=== PATIENT | male | born 1955 | race Caucasian/White ===

== ENCOUNTER 2020-11-07 17:50 | Emergency (ER) | payer OTHER, SELFPAY ==
--- NOTE | ~2020-11-07 | XR_ITS ---
EXAMINATION: XR abdomen/kub 1V INDICATION: Bilateral ureteral stones TECHNIQUE: Supine views of the abdomen were obtained on 2 radiographs. COMPARISON: CT from today FINDINGS: There is a 3 mm stone projecting at the expected location of the left ureterovesicular junc tion. A 5 mm stone is seen in the expected location of the distal right ureter. Small bilateral nephr olithiasis described on the comparison CT is not definitely identified. The lung bases are clear. The bowel gas pattern is normal. IMPRESSION: 1. Bilateral pelvic stones projecting in the expected location of the distal ureters. Reviewed, dictated and finalized at location A. IMPRESSION: 1. Bilateral pelvic stones projecting in the expected location of the distal ur eters.
--- NOTE | ~2020-11-07 | CT_ITS ---
EXAMINATION: CT abdomen pelvis wo con DATE: 11/07/2020 19:34 INDICATION: Left flank pain TECHNIQUE: Computed tomography (CT) of the abdomen and pelvis was performed without intravenous contr ast. The dose-length product (DLP) was 208.07 mGy-cm. Automated exposure control and iterative recons truction technique were employed. COMPARISON: None FINDINGS: The lung bases are clear. The heart size is normal. The liver, spleen, pancreas, gallbladde r, and adrenal glands are normal. There is a 4 mm stone at the left ureterovesicular junction which c auses mild left hydroureteronephrosis. There is a 5 mm stone in the distal right ureter with mild hyd ronephrosis. No pathologically enlarged abdominal or pelvic lymph nodes are identified. There is calc ified atherosclerosis of the aorta and many of the other arteries. Colonic diverticulosis is present without evidence of diverticulitis. There is no free intraperitoneal gas or evidence of bowel obstruc tion. There is a large right hydrocele which measures up to 6.7 cm. Severe thoracic and lumbar spondy losis is noted. There is a tiny fat-containing umbilical hernia. IMPRESSION: 1. 4 mm stone at the left ureterovesicular junction causing mild left hydroureteronephrosis. 2. 5 mm stone of the distal right ureter with mild right hydronephrosis. 3. Large right hydrocele. Reviewed, dictated and finalized at location A. IMPRESSION: 1. 4 mm stone at the left ureterovesicular junction causing mild left hydrouret eronephrosis. 2. 5 mm stone of the distal right ureter with mild right hydronephrosis. 3. Large right hydrocele.
[2020-11-07 17:59] VITALS: BP 152/80; PULSE 83; RESP 20; TEMP 36.8; O2SAT 100
[2020-11-07 18:29] LABS: Basophils Absolute Auto 0.1 K/mm3 (0.0-0.1); Basophils Percent Auto 0.7 % (0.2-1.2); Eosinophils Absolute Auto 0.1 K/mm3 (0-0.3); Hematocrit 40.8 % (42.0-52.0); Hemoglobin 13.5 g/dL (14.0-18.0); Immature Granulocyte Absolute 0.03 K/mm3 (0.00-0.031); Immature Granulocyte Percent A 0.4 % (0-0.5); Lymphocytes Absolute Auto 2.15 K/mm3 (0.9-3.2); Lymphocytes Percent Auto 30.2 % (18.3-44.2); Mean Corpuscular HGB Conc 33.1 g/dl (32-36); Mean Corpuscular Hemoglobin 30.3 pg (26-34); Mean Corpuscular Volume 91.7 fl (80-100); Mean Platelet Volume 9.6 fl (7.4-10.4); Monocytes Absolute Auto 0.6 K/mm3 (0.1-0.6); Monocytes Percent Auto 8.7 % (2.6-8.5); Neutrophils Absolute Auto 4.1 K/mm3 (1.3-6.7); Platelet Count Result 297 k/mm3 (150-375); Red Blood Count 4.45 M/mm3 (4.6-6.20); Red Cell Distribution Width 13.2 % (11.5-14.5); White Blood Count 7.1 K/mm3 (4.5-10.0)
[2020-11-07 18:40] LABS: Potassium 5.5 mmol/L (3.4-5.0)
[2020-11-07 18:46] LABS: Anion Gap 9 mmol/L (8-16); Blood Urea Nitrogen 20 mg/dL (9-20); Carbon Dioxide 23 mmol/L (22-30); Chloride 107 mmol/L (98-107); Estimated CRCL calculation 42 ml/min; Estimated Glomerular Filt Rate 51; Glucose 108 mg/dL (65-110); Sodium 139 mmol/L (137-145)
[2020-11-07 19:00] LABS: Add Urine Microscopic? YES; Appearance Urine Clear (Clear); Bilirubin Urine Negative (Negative); Blood Urine 2+ (Negative); Color Urine Yellow (Yellow); Glucose Urine UA Negative (Negative); Ketones Urine Negative (Negative); Leukocyte Esterase Ur Negative LEU/UL (Negative); Mucus Urine Rare /lpf; Nitrate Urine Negative (Negative); Protein Urine Negative (Negative); RBC Urine 21-50 /hpf (0-2); Specific Grav Ur 1.018 (1.001-1.035); Urobilinogen Urine Negative mg/dL (<2.0)
[2020-11-07] MEDS: SODIUM CHLORIDE 0.9% IV 1,000 ML 999 ML IV CONT ×2 (19:55→20:08)
[2020-11-07] MEDS: ONDANSETRON INJ 4 MG/2 ML VIAL IV PUSH (19:55)
[2020-11-07 19:56] VITALS: BP 158/94; PULSE 56; RESP 20; O2SAT 100
[2020-11-07] MEDS: KETOROLAC 30 MG/ML VIAL (*BKC) IV PUSH (19:56)
--- NOTE | 2020-11-07 20:51 | ED.GENADULT ---
HPI - General Adult General Chief complaint: Back Pain/Injury Stated complaint: left flank pain Time Seen by Provider: 11/07/20 19:16 History of Present Illness HPI narrative: Patient is a 64-year-old male who presents ER with flank pain. Has history of kidney stones. Reports yesterday began having some dysuria and then today developed pain in his left flank and groin. He has had some sweats and nausea with this. No fevers or chills or sweats. He is making urine and is having to go frequently due to cramping pain. He has tried [place] with only minimal relief. Related Data Home Medications Medication Instructions Recorded Confirmed cmxgbhj-kaaiznhxspfnu-ucnicsev 250 1 tablet PO Q4-6H PRN 03/11/19 09/30/20 mg-250 mg-65 mg tablet cetirizine 10 mg tablet 10 mg PO DAILY PRN 03/11/19 09/30/20 famotidine 20 mg tablet 20 mg PO DAILY PRN 09/30/19 09/30/20 hydrocodone 10 mg-acetaminophen 1 tablet PO Q8H PRN 03/30/20 09/30/20 325 mg tablet tizanidine 4 mg capsule 4 mg PO TID PRN 03/30/20 09/30/20 Allergies Allergy/AdvReac Type Severity Reaction Status Date / Time No Known Allergies Allergy Verified 05/27/19 11:32 Review of Systems Review of Systems: All systems reviewed & are unremarkable except as noted in HPI and below Constitutional: Constitutional: Denies chills, Denies fever(s) and Denies weakness Gastrointestinal: Gastrointestinal: Reports abdominal pain, Reports nausea and Denies vomiting Genitourinary: Genitourinary: Reports dysuria, Reports urinary frequency and Denies urinary incontinence [facility] Past Medical History Medical History (Updated 11/07/20 @ 21:18 by Km Rothman MD) Acid reflux Hypertension Hypertension Kidney stones Migraine headache Mild acid reflux TIA (transient ischemic attack) Surgical History Surgical History H/O neck surgery 01/2020 Family History Family History Father Family history of cardiovascular disease Father Heart failure Social History Social History Smoking status: Never smoker Tobacco type: cigarettes Alcohol intake: former Substance use: never Gender identity (if verbalized by the patient): Male Exam Narrative: GENERAL: Well-appearing, well-nourished, and in no acute distress. HEAD: Normocephalic, atraumatic. CHEST: Clear to auscultation. No respiratory distress. HEART: Regular rate and rhythm. Normal peripheral pulses. ABDOMEN: Soft, nontender, nondistended. Mild left CVA tenderness EXTREMITIES: Normal range of motion. No edema. SKIN: Warm, dry, no rash. NEURO: Alert and oriented x3. PSYCH: Normal mood and affect. Course Course Emergency Course: Discussed case with urology. Patient is making urine and feels comfortable going home. Discussed return precautions and he verbalized understanding. Vital Signs Vital signs: Vital Signs Temperature 98.3 F 11/07/20 17:59 Pulse Rate 83 11/07/20 17:59 Respiratory Rate 20 11/07/20 17:59 Blood Pressure 152/80 H 11/07/20 17:59 Pulse Oximetry 100 11/07/20 17:59 Temperature 98.3 F 11/07/20 17:59 Pulse Rate 80 11/07/20 21:08 Respiratory Rate 16 11/07/20 21:08 Blood Pressure 132/88 11/07/20 21:08 Pulse Oximetry 97 11/07/20 21:08 Medical Decision Making Vital Signs Vital Signs: Vital Signs Temperature 98.3 F 11/07/20 17:59 Pulse Rate 83 11/07/20 17:59 Respiratory Rate 20 11/07/20 17:59 Blood Pressure 152/80 H 11/07/20 17:59 Pulse Oximetry 100 11/07/20 17:59 Temperature 98.3 F 11/07/20 17:59 Pulse Rate 80 11/07/20 21:08 Respiratory Rate 16 11/07/20 21:08 Blood Pressure 132/88 11/07/20 21:08 Pulse Oximetry 97 11/07/20 21:08 Lab Data Result diagrams: 11/07/20 18:04 11/07/20 18:04 Labs: Lab Results 11/07/20 11/07/20 11/07/20 Issac
[2020-11-07 21:08] VITALS: BP 132/88; PULSE 80; RESP 16; O2SAT 97
[2020-11-07 21:54] VITALS: BP 127/84; PULSE 73; RESP 18; O2SAT 100
== END 2020-11-07 21:56 | disposition home or self-care (01) ==
PROVIDERS: Emergency Provider Emergency Medicine; PCP Internal Medicine
DX: N13.2 Hydronephrosis with renal and ureteral calculous obstruction (principal); K21.9 Gastro-esophageal reflux disease without esophagitis; I10 Essential (primary) hypertension; Z86.73 Personal history of transient ischemic attack (TIA), and cerebral infarction without residual deficits; Z87.442 Personal history of urinary calculi; Z79.82 Long term (current) use of aspirin
CPT/HCPCS: 36415; 74018; 74176; 80048; 81001; 85025; 96361; 96374; 96375; 99284; J1885; J2405; J7030

== ENCOUNTER → 2020-11-11 10:04 | Outpatient (CLI) | payer OTHER, SELFPAY ==
--- NOTE | ~2020-11-11 | XR_ITS ---
EXAMINATION: XR abdomen/kub 1V INDICATION: Calculus of the right ureter TECHNIQUE: Supine views of the abdomen were obtained on 2 radiographs. COMPARISON: 11/07/2020 FINDINGS: The previously described left pelvic stone is no longer identified. There is a 5 mm stone i n the expected location of the distal right ureter which demonstrates slight distal migration, likely now near the ureterovesicular junction. The bowel gas pattern is normal. The lung bases are clear. IMPRESSION: 1. 5 mm stone near the right ureterovesicular junction. 2. Previously described left ureterovesicular junction stone no longer identified. Reviewed, dictated and finalized at location A. IMPRESSION: 1. 5 mm stone near the right ureterovesicular junction. 2. Previously described left ureterovesicular junction stone no longer identifi ed.
== END ==
PROVIDERS: PCP Internal Medicine; Visit Provider Urology
DX: N20.1 Calculus of ureter (principal)
CPT/HCPCS: 74018

== ENCOUNTER 2020-11-13 03:31 | Day surgery (SDC) | payer OTHER, SELFPAY ==
[2020-11-12 15:39] VITALS: BMI 22.7
--- NOTE | ~2020-11-13 | XR_ITS ---
XR retrograde pyelo w/stent RT DATE: 11/13/2020 13:40 INDICATION: 5 mm calculus of distal right ureter, mild right hydronephrosis (11/07/2020 CT abdomen pel vis) TECHNIQUE: 16.1 seconds fluoroscopy time 134.01 radcm2 COMPARISON: None FINDINGS: In the right ureter was catheterized via a ureteroscopic the with passage of a guidewire pl acement of a right internal urinary stent, proximal pigtail overlying the right renal pelvis, distal pigtail overlying the right side of the urinary bladder. IMPRESSION: Right internal urinary stent placement Reviewed, dictated and finalized at Location A. Reviewed, dictated and finalized at location B.
--- NOTE | 2020-11-13 06:07 | ECG_ITS ---
Measurements Intervals [place] Rate: 63 P: 47 MD: 154 QRS: 19 QRSD: 80 T: 51 QT: 403 QTc: 415 Interpretive Statements SINUS RHYTHM EARLY PRECORDIAL R/S TRANSITION BORDERLINE ECG Electronically Signed On 11-13-2020 12:02:11 CDT by Jg Peterson D.O.
--- NOTE | 2020-11-13 10:37 | WPDHPUPDATE1 ---
History and Physical Update Update Date/Time: 11/13/20 10:37 History and Physical has been reviewed, including an updated exam of the patient. There are NO changes in the patient's condition. Risks, benefits, and alternatives have been discussed and questions answered. Patient agrees to proceed with procedure. Proceed with cysto, right retrograde, right ureteroscopy with stone extraction, possible laser and stent placement.
[2020-11-13] MEDS: LACTATED RINGERS 1,000 ML 30 ML IV CONT (11:00)
[2020-11-13 11:52] VITALS: BP 147/75; PULSE 68; RESP 16; TEMP 36.6
--- NOTE | 2020-11-13 12:46 | WPDANESEPPF ---
Anes - Initial Pre Proc Eval Procedure: Operation Date: 11/13/20 12:30 Proposed Procedures p Cystoscopy, Right Ureteroscopy, Right Retrograde Pyelogram, Right Stone Extraction, Possible Right Stent Placement, - Abhilash Corbett MD s Possible Holmium Laser Procedure - Abhilash Corbett MD Date/Time: 11/13/20 12:46 Surgeon: Abhilash Corbett MD Pre Op Diagnosis: Bilat ureteral stones Patient Data Age: 64 Gender: M Height: 1.65 m Weight: 60.9 kg Last Vital Signs Temp 36.6 C 11/13/20 11:52 Pulse 68 11/13/20 11:52 Resp 16 11/13/20 11:52 BP 147/75 H 11/13/20 11:52 Allergies Allergy/AdvReac Type Severity Reaction Status Date / Time No Known Allergies Allergy Verified 11/13/20 11:36 Home Medications Medication Instructions Recorded Confirmed Type euvwgvs-psfzfyqokbvzm-zongppql 250 1 tablet PO Q4-6H PRN 03/11/19 11/12/20 History mg-250 mg-65 mg tablet cetirizine 10 mg tablet 10 mg PO DAILY PRN 03/11/19 11/12/20 History famotidine 20 mg tablet 20 mg PO DAILY PRN 09/30/19 11/12/20 History hydrocodone 10 mg-acetaminophen 1 tablet PO Q8H PRN 03/30/20 11/13/20 History 325 mg tablet tizanidine 4 mg capsule 4 mg PO TID PRN 03/30/20 11/12/20 History simvastatin 10 mg tablet 10 mg PO DAILY #90 tablet 06/02/20 11/12/20 Rx losartan 100 mg tablet 100 mg PO DAILY #90 tablet 10/19/20 11/13/20 Rx ondansetron 4 mg PO Q6H PRN #5 tablet 11/07/20 11/12/20 Rx tamsulosin 0.4 mg PO DAILY #5 cap 11/07/20 11/12/20 Rx Patient hx anesthesia problems: none Family hx anesthesia problems: none PMFSH Past Medical History Medical History Acid reflux Hypertension Hypertension Kidney stones Migraine headache Mild acid reflux TIA (transient ischemic attack) Surgical History Surgical History H/O neck surgery 01/2020 Family History Family History Father Family history of cardiovascular disease Father Heart failure Social History Social History Smoking status: Never smoker Tobacco type: cigarettes Alcohol intake: former Substance use: never Substance use type: does not use Living arrangements: with family Gender identity (if verbalized by the patient): Male Sexual Orientation (if Verbalized by the Patient): Straight or Heterosexual Spiritual care concerns: No Anes - Eval Final PreProcedure Day of Procedure 11/13/20 12:46 Patient weight: normal Heart: regular rate and rhythm Lungs: clear to auscultation Airway: Mallampati scale class II and other (s/p ACDwith radiculopathy and right arm numbness) Neurological: alert and oriented Last oral intake: >/= 8 hours ASA classification: II Emergent: no Anesthetic plan: proceed Anesthesia type and monitoring: general LMA and standard monitoring Informed Consent: The patient's anesthetic plan and its attendant risks and benefits were discussed with the patient/family/POA. Questions were solicited and answers provided to the satisfaction of the patient/family/POA.
[2020-11-13] MEDS: ceFAZolin 2 GM/D5W 50 ML 2 GM/50 ML BAG IVPB (13:15)
[2020-11-13] MEDS: LIDOCAINE HCL 2% GEL UROJET 10 ML PKG MUCOUS MEM (13:28)
--- NOTE | 2020-11-13 13:38 | W.PM.PROC2 ---
Procedure Note - Detailed Date of Procedure 11/13/20 Pre-op Diagnosis Right ureteral calculus distal 5 mm Post-op Diagnosis same Procedure Performed cystoscopy, right retrograde pyelogram, right ureteroscopy with stone extraction, right ureteral stent placement 4.8 [place] contour Surgeon Abhilash Corbett MD Anesthesia general Description of Procedure patient is taken the operative suite correctly identified. Once anesthesia was obtained he was placed in dorsal lithotomy position and prepped and draped usual sterile fashion. Twenty-two [place] scope was inserted in bladder. There are no tumors noted. Right ureteral orifice cannulated with a guidewire. It was dilated using an 8/10 dilator. Rigid ureteral scope was then inserted into the orifice. The stone was localized and grasped. Using an escape basket we retrieved in 1 piece. Reinspection revealed no residual stone. Pyelogram was then performed confirm placement of the stent. 4.8 [place] contour stent was then placed with the proximal end coiled in the renal pelvis and the distal in the bladder. Bladder was drained. 2% viscous lidocaine was inserted urethra patient is taken recovery stable condition. He will follow up in a week's time for stent removal. Drains Yes Packing No Pathology yes Complications No immediate complications Condition stable Disposition PACU
[2020-11-13 13:42] VITALS: BP 110/67; PULSE 62; RESP 12; TEMP 36.1; O2SAT 100
[2020-11-13 13:55] VITALS: BP 125/71; PULSE 64; RESP 18; O2SAT 100
[2020-11-13 14:10] VITALS: BP 121/72; PULSE 63; RESP 14; O2SAT 100
[2020-11-13 14:20] VITALS: BP 135/75; PULSE 64; RESP 16
== END 2020-11-13 15:12 | disposition home or self-care (01) ==
PROVIDERS: PCP Internal Medicine; Visit Provider Urology
PROC: (CPT 52352; principal; 2020-11-13 12:30)
DX: N20.1 Calculus of ureter (principal); I10 Essential (primary) hypertension; K21.9 Gastro-esophageal reflux disease without esophagitis; Z86.73 Personal history of transient ischemic attack (TIA), and cerebral infarction without residual deficits
CPT/HCPCS: 52332; 52352; 74420; 82365; 88300; 93005; A9270; C1769; C2617; J0690; J1100; J2405; J2704; J7120; Q9966

== ENCOUNTER → 2020-11-24 15:28 | Outpatient (CLI) | payer OTHER, SELFPAY ==
--- NOTE | ~2020-11-24 | US_ITS ---
US scrotum doppler DATE: 11/24/2020 15:59 INDICATION: Hydrocele. Right scrotal discomfort for over 30 years, increasing. Enlarging right scrotu m. TECHNIQUE: Real-time and color flow imaging and Doppler analysis of the scrotal contents COMPARISON: 11/07/2020 CT abdomen pelvis FINDINGS: Examination is remarkable for a large loculated right hydrocele. No left hydrocele. The right testicle measures 3.6 x 1.8 x 3.4 cm. The left testicle measures 4.8 x 2.1 x 2.4 cm. There is homogeneous and symmetric echotexture of the testicles. No testicular mass lesion or torsion is evident. Left epididymal head cysts are present, measuring up to approximately 6.8 mm maximal dimension. IMPRESSION: Large loculated right hydrocele No testicular mass lesion or torsion is demonstrated Left epididymal head cysts Reviewed, dictated and finalized at Location A. Reviewed, dictated and finalized at location A.
== END ==
PROVIDERS: PCP Internal Medicine; Visit Provider Urology
DX: N43.3 Hydrocele, unspecified (principal); N50.3 Cyst of epididymis; N50.811 Right testicular pain
CPT/HCPCS: 76870; 93976

== ENCOUNTER → 2021-01-08 15:23 | Outpatient (CLI) | payer OTHER, SELFPAY ==
--- NOTE | ~2021-01-08 | US_ITS ---
EXAMINATION: US retroperitoneal comp DATE: 01/08/2021 15:44 INDICATION: Recent renal stones TECHNIQUE: Multiple grayscale and Doppler ultrasound images of the kidneys were obtained. COMPARISON: None. FINDINGS: The right kidney measures 8.2 x 4.6 x 5.1 cm. The left kidney measures 9.3 x 5.9 x 4.7 cm. The kidneys demonstrate normal parenchymal echogenicity. There is mild right hydronephrosis. The blad sonja is normal. IMPRESSION: 1. Mild right hydronephrosis, otherwise normal kidneys. Reviewed, dictated and finalized at location A.
== END ==
PROVIDERS: PCP Internal Medicine; Visit Provider Urology
DX: N20.1 Calculus of ureter (principal)
CPT/HCPCS: 76770

== ENCOUNTER → 2021-04-12 14:54 | Outpatient (CLI) | payer OTHER, SELFPAY ==
--- NOTE | ~2021-04-12 | US_ITS ---
EXAMINATION: US retroperitoneal comp DATE: 04/12/2021 15:38 INDICATION: Right renal stone TECHNIQUE: Multiple ultrasound grayscale images of the kidneys were obtained. COMPARISON: 01/08/2021 FINDINGS: The right kidney measures 9.0 x 4.4 x 4.1 cm. The left kidney measures 9.6 x 6.3 x 5.2 cm. The kidney s demonstrate normal echogenicity. Persistent mild right hydronephrosis. There is no left-sided hydro nephrosis. No stones identified. The bladder is normal with bilateral ureteral jets visualized with c olor Doppler. IMPRESSION: 1. Persistent mild right hydronephrosis. Reviewed, dictated and finalized at location B. T BASIC EDUCATION INSTRUCTOR
== END ==
PROVIDERS: Visit Provider Urology
DX: N20.1 Calculus of ureter (principal)
CPT/HCPCS: 76770

== ENCOUNTER → 2021-06-07 15:23 | Outpatient (CLI) | payer OTHER, SELFPAY ==
--- NOTE | ~2021-06-07 | CT_ITS ---
EXAMINATION: CT abdomen pelvis wo/w con EXAM DATE: 06/07/2021 15:57 INDICATION: Hydrocele, right. Ureteral stones on prior study. Hypertension. TECHNIQUE: Spiral CT of the abdomen and pelvis was performed without and then with intravenous inject ion of 100 mL Omnipaque 350. Axial, coronal and sagittal images of the abdomen and pelvis were revi ewed. The dose-length product (DLP) for this examination was 940.97 mGy-cm. The exposure was tailor ed according to patient size (auto mA exposure control), and iterative reconstruction (ASIR) was used as additional dose reduction technique. Comparison is made to prior examination from 11/07/2020. FINDINGS: Large right-sided hydrocele, similar appearance on prior CT. The liver, spleen, adrenal gla nds and pancreas are unremarkable. The gallbladder is contracted but otherwise unremarkable. There is no nephrolithiasis or hydronephrosis, resolution of previously seen distal ureteral stones. There are regions of right renal cortical scarring from prior infection or infarctions. Kidneys enhance sym metrically. Prostate is unremarkable. The bladder is unremarkable. There is no retroperitoneal or pelvic lymphadenopathy. There is mild scattered arteriosclerotic disease. Small umbilical fat-conta ining hernia. No inguinal hernias. The appendix is normal. There is mild to moderate sigmoid and descending colonic colonic diverticulos is. There is no adjacent inflammatory change to suggest diverticulitis. The stomach and small bowel are unremarkable. There is expected amount of colonic stool. No free intraperitoneal gas. The he art is normal in size. There are no pericardial or pleural effusions. The lung bases are unremarkab le. There are no osteoblastic or osteolytic lesions identified. There is advanced lower thoracic dis c disease. IMPRESSION: 1. Large right hydrocele unchanged. 2. Regions of right renal cortical scarring. 3. Mild to moderate colonic diverticulosis. 4. No genitourinary calcifications. Reviewed, dictated and finalized at location G. RVISOR LIME
--- NOTE | ~2021-06-07 | XR_ITS ---
XR abdomen/kub 1V DATE: 06/07/2021 15:57 INDICATION: Right hydrocele TECHNIQUE: AP projection, 2 views COMPARISON: 06/07/2021 CT abdomen pelvis 11/11/2020 KUB 11/07/2020 CT abdomen pelvis FINDINGS: Interval resolution of previously reported 5 mm calcified calculus of distal right ureter. HISTORY: Urinary tract calcification is identified. The psoas shadows are intact. No visceromegaly is evident. There is a prominent amount of fecal mater ial in the ascending colon. No bowel obstruction is evident. IMPRESSION: Nonspecific abdomen Reviewed, dictated and finalized at Location A. Reviewed, dictated and finalized at location A. SERVER BI DEVELOPER IMPRESSION: Nonspecific abdomen
[2021-06-07 15:43] LABS: Estimated Glomerular Filt Rate > 60
== END ==
PROVIDERS: PCP Internal Medicine; Visit Provider Urology
DX: N43.3 Hydrocele, unspecified (principal); K57.30 Diverticulosis of large intestine without perforation or abscess without bleeding
CPT/HCPCS: 74018; 74178; Q9967

== ENCOUNTER 2021-11-25 00:59 | Day surgery (SDC) | payer OTHER, SELFPAY ==
[2021-11-16 13:13] VITALS: BMI 22.5
--- NOTE | 2021-11-25 08:19 | WPDHPUPDATE1 ---
History and Physical Update Update Date/Time: 11/25/21 08:19 History and Physical has been reviewed, including an updated exam of the patient. There are NO changes in the patient's condition. Risks, benefits, and alternatives have been discussed and questions answered. Patient agrees to proceed with procedure.
[2021-11-25] MEDS: LACTATED RINGERS 1,000 ML 150 ML IV CONT (08:24)
--- NOTE | 2021-11-25 09:03 | WPDANESEPPF ---
Anes - Initial Pre Proc Eval Procedure: Operation Date: 11/25/21 09:30 Proposed Procedures p Esophagogastroduodenoscopy & Screening Colonoscopy - Josh Dominguez MD Date/Time: 11/25/21 09:03 Surgeon: Josh Dominguez MD Pre Op Diagnosis: nausea, vomiting, neoplasm screening Patient Data Age: 65 Gender: M Height: 1.65 m Weight: 58.7 kg Last Vital Signs O2 Del Method Room Air 11/25/21 08:06 Allergies Allergy/AdvReac Type Severity Reaction Status Date / Time No Known Allergies Allergy Verified 11/25/21 08:05 Home Medications Medication Instructions Recorded Confirmed Type oqftkga-dyiskdlgzdcie-gdqzzkwp 250 1 tablet PO Q4-6H PRN Headache 03/11/19 11/16/21 History mg-250 mg-65 mg tablet (Excedrin Migraine) cetirizine 10 mg tablet (Zyrtec) 10 mg PO DAILY PRN ALLERGIES 03/11/19 11/16/21 History famotidine 20 mg tablet (Pepcid) 20 mg PO DAILY PRN GERD 09/30/19 11/16/21 History tamsulosin 0.4 mg capsule 0.4 mg PO DAILY #5 caps 11/07/20 11/16/21 Rx losartan 100 mg tablet See Rx Instructions .Route 10/12/21 11/16/21 Rx .COMPLEX #90 tabs peg 3350-electrolytes 236 240 ml PO Q10M #4,000 mL 11/01/21 11/16/21 Rx gram-22.74 gram-6.74 gram-5.86 gram solution (Golytely) doxepin 10 mg capsule 10 mg PO QHS PRN insomnia #90 caps 11/04/21 11/16/21 Rx simvastatin 10 mg tablet See Rx Instructions .Route 11/19/21 11/25/21 Rx .COMPLEX #90 tabs Patient hx anesthesia problems: none Family hx anesthesia problems: none Results Review: All pre-operative results and documents have been reviewed as part of the pre-operative evaluation. [facility] Past Medical History Medical History (Updated 10/28/21 @ 10:03 by Andria Brizuela APRN) Acid reflux GERD (gastroesophageal reflux disease) Hypertension Hypertension Kidney stones Migraine headache Mild acid reflux TIA (transient ischemic attack) Surgical History Surgical History H/O neck surgery 01/2020 Family History Family History Father Family history of cardiovascular disease Father Heart failure Social History Social History (Updated 10/28/21 @ 09:15 by Gill Orellana MA) Smoking packs per day: 1.5 Smoking cigarettes per day: 30.0 Years smoked: 30 Smoking pack-years: 45.00 Smoking status: Former smoker Tobacco type: cigarettes Alcohol intake: never Substance use: never Substance use type: does not use Living arrangements: with family Gender identity (if verbalized by the patient): Male Sexual Orientation (if Verbalized by the Patient): Straight or Heterosexual Spiritual care concerns: No Anes - Eval Final PreProcedure Day of Procedure 11/25/21 09:03 Patient weight: normal Heart: regular rate and rhythm Lungs: clear to auscultation Airway: Mallampati scale class II Neurological: alert and oriented Last oral intake: >/= 8 hours ASA classification: II Emergent: no Anesthetic plan: proceed Anesthesia type and monitoring: general GIVS and standard monitoring Results Review: All pre-operative results and documents have been reviewed as part of the pre-operative evaluation. Informed Consent: The patient's anesthetic plan and its attendant risks and benefits were discussed with the patient/family/POA. Questions were solicited and answers provided to the satisfaction of the patient/family/POA.
--- NOTE | 2021-11-25 09:41 | SUR.OPER ---
EGD START 914, END 924 COLONOSCOPY START 930, END 939
[2021-11-25 09:45] VITALS: BP 94/69; PULSE 84; RESP 21; TEMP 28.8; O2SAT 100
[2021-11-25 09:55] VITALS: BP 97/66; PULSE 72; RESP 13; O2SAT 100
[2021-11-25 10:05] VITALS: BP 113/67; PULSE 72; RESP 18; O2SAT 100
== END 2021-11-25 10:19 | disposition home or self-care (01) ==
PROVIDERS: PCP Internal Medicine; Visit Provider Internal Medicine Gastroenterology
PROC: 0DJ08ZZ Inspection of Upper Intestinal Tract, Via Natural or Artificial Opening Endoscopic (ICD-10-PCS; CPT 43235; principal; 2021-11-25 09:30)
DX: Z12.11 Encounter for screening for malignant neoplasm of colon (principal); K22.70 Barrett's esophagus without dysplasia; K64.8 Other hemorrhoids; K57.30 Diverticulosis of large intestine without perforation or abscess without bleeding; R11.10 Vomiting, unspecified; K31.5 Obstruction of duodenum; R11.2 Nausea with vomiting, unspecified; Z79.82 Long term (current) use of aspirin; K21.9 Gastro-esophageal reflux disease without esophagitis; Z86.73 Personal history of transient ischemic attack (TIA), and cerebral infarction without residual deficits; I10 Essential (primary) hypertension; Z87.891 Personal history of nicotine dependence
CPT/HCPCS: 45378; 43239; 43245; 88305; C1726; J2704; J7120

== ENCOUNTER → 2022-05-30 15:29 | Outpatient (CLI) | payer OTHER, SELFPAY ==
--- NOTE | ~2022-05-30 | MR_ITS ---
EXAMINATION: MR cervical spine wo con DATE: 05/30/2022 16:15 INDICATION: Cervical spinal fusion. Neck pain. TECHNIQUE: Magnetic resonance imaging (MRI) of the cervical spine was performed without intravenous c ontrast. COMPARISON: Cervical spine MRI 05/02/2019 FINDINGS: There is 7 degrees dextrocurvature of cervical spine. There is 2 mm anterolisthesis of C3 o n C4 and 2 mm retrolisthesis of C5 on C6 and C6 on C7. There is 2 mm anterolisthesis of C7 on T1. Elder tebral body heights are normal. There are changes of anterior fusion procedure from C3 to C5 with int erbody devices and anterior plate and screws. There is severely decreased disc height at C5-C6 and C6 -C7 with endplate remodeling. The following disc levels are specifically discussed: C2-C3: There is a central extrusion. There is mild left uncovertebral joint osteoarthritis. There is mild right and severe left facet joint osteoarthritis. There is mild left neural foraminal stenosis. There is no central canal stenosis. C3-C4: There is mild left uncovertebral joint hypertrophy. There is ankylosis of the facet joints wit h mild hypertrophy. There is mild left neural foraminal stenosis. There is no central canal stenosis. C4-C5: There is mild right and moderate left uncovertebral joint hypertrophy. There is moderate left facet joint osteoarthritis. There is ankylosis of right facet joint without hypertrophy. There is mil d left neural foraminal stenosis. There is mild central canal stenosis. C5-C6: The disc is bulging. There is severe bilateral uncovertebral joint osteoarthritis. There is se remedios right and moderate left facet joint osteoarthritis. There is moderate bilateral neural foraminal stenosis. There is mild central canal stenosis with ventral indentation of the spinal cord. C6-C7: The disc is bulging. There is severe bilateral uncovertebral joint osteoarthritis. There is se remedios bilateral facet joint osteoarthritis. There is moderate bilateral neural foraminal stenosis. The re is mild central canal stenosis. C7-T1: The disc does not extend beyond the endplate margin. There is no uncovertebral joint osteoarth ritis. There is severe bilateral facet joint osteoarthritis. There is mild bilateral neural foraminal stenosis. There is no central canal stenosis. IMPRESSION: 1. Severe cervical spondylosis. 2. Anterior fusion procedure from C3 to C5. Reviewed, dictated and finalized at location A. IC RELATIONS
== END ==
PROVIDERS: PCP Internal Medicine; Visit Provider Neurological Surgery
DX: M47.892 Other spondylosis, cervical region (principal); Z98.1 Arthrodesis status
CPT/HCPCS: 72141

== ENCOUNTER 2023-05-31 16:28 | Observation (INO) | payer OTHER, SELFPAY ==
--- NOTE | ~2023-05-31 | XR_ITS ---
EXAMINATION: XR sm bowel follow through WS DATE: 06/01/2023 11:59 INDICATION: Small bowel obstruction TECHNIQUE: Hematology Specialist radiograph the abdomen was obtained. Water-soluble oral contrast was administered, a nd sequential radiographs of the abdomen were obtained until oral contrast was noted to be in the pro ximal colon. COMPARISON: CT dated 05/31/2023 FINDINGS: There are no dilated loops of gas-filled bowel in the machine cementer and folder radiograph. Nasogastric tube with distal tip at the gastric antrum and proximal side port in the body of the stomach. Transit time from the stomach to proximal colon was approximately 45 minutes. There is normal caliber and mucosal fold pattern throughout the small bowel. Small sliding-type hiatal hernia with small sasha unt of contrast into the distal esophagus on the 45 minute image consistent with likely reflux. IMPRESSION: 1. Small sliding-type hiatal hernia with reflux of a small amount of contrast into the distal esophag us alongside the appropriately positioned nasogastric tube. 2. Otherwise normal small bowel follow-through with no obstruction. Reviewed, dictated and finalized at location A. T PROTECTION ASSOCIATE IMPRESSION: 1. Small sliding-type hiatal hernia with reflux of a small amount of contrast i nto the distal esophagus alongside the appropriately positioned nasogastric tub e. 2. Otherwise normal small bowel follow-through with no obstruction.
--- NOTE | ~2023-05-31 | XR_ITS ---
EXAMINATION: XR abdomen gastric tube insert DATE: 05/31/2023 21:02 INDICATION: Nasogastric tube placement. TECHNIQUE: An upright view of the abdomen was obtained on 2 radiographs. COMPARISON: CT abdomen and pelvis 05/31/2023 FINDINGS: The lower abdomen is excluded. The nasogastric tube tip is in the stomach. IMPRESSION: 1. Nasogastric tube tip in the stomach. Reviewed, dictated and finalized at location E. FORMER
--- NOTE | ~2023-05-31 | CT_ITS ---
EXAMINATION: CT abdomen pelvis wo con DATE: 05/31/2023 17:52 INDICATION: Bilateral flank pain. Kidney stones. TECHNIQUE: Computed tomography (CT) of the abdomen and pelvis was performed without intravenous contr ast. Automated exposure control and iterative reconstruction technique were employed. The dose-length product was 261.33 mGy-cm. COMPARISON: CT abdomen and pelvis 06/07/2021 FINDINGS: The visualized portions of the lung bases demonstrate minimal atelectasis. No pleural effus ion. The heart size is normal. No pericardial effusion. There are calcifications of right coronary ar aakash. The liver, gallbladder, spleen, pancreas, and adrenal glands are normal. There is cortical thin bear of right kidney. There are peripelvic cysts in left kidney measuring up to 2.2 cm . There is no urolithiasis. The prostate is mildly enlarged. There is diverticulosis of the colon without evidence of diverticulitis. There is desiccated stool in the terminal ileum, which is normal in caliber. There are multiple dilated loops of small bowel proximal to this area. The stomach is distended. There are no pathologically enlarged lymph nodes. There is no free intraperitoneal fluid. There is a chronic l arge right hydrocele. There is severe thoracic and lumbar spondylosis. IMPRESSION: 1. Stool impaction in the terminal ileum. 2. Chronic large right hydrocele. Reviewed, dictated and finalized at location E. ING BALL ASSEMBLER
[2023-05-31 16:31] VITALS: BP 142/88; PULSE 115; RESP 20; TEMP 36.1; O2SAT 100
--- NOTE | 2023-05-31 16:44 | ED.MALEGU ---
HPI - Male Genitourinary General Chief complaint: Urogenital-Male Stated complaint: R FLANK PAIN, HX KIDNEY STONES Time Seen by Provider: 05/31/23 16:44 Source: patient and family Mode of arrival: ambulatory History of Present Illness HPI Narrative: 67 years old white male came to the ED with bilateral flank pain mainly on the right side of started last night associated with nausea for the last 2 days, patient reported increased frequency of urination lately. He denies any fever or chills. History of kidney stone. Related Data Allergies Allergy/AdvReac Type Severity Reaction Status Date / Time No Known Allergies Allergy Verified 05/31/23 16:44 Review of Systems Review of Systems: All systems reviewed & are unremarkable except as noted in HPI and below PMFSH Past Medical History Medical History Acid reflux Acute hyperkalemia Elevated glucose level Encounter for screening for other disorder GERD (gastroesophageal reflux disease) Hypertension Hypertension Impacted cerumen of left ear Insomnia Kidney stones Leg cramping Migraine headache Mild acid reflux Nausea and vomiting Screening for colon cancer Screening for prostate cancer TIA (transient ischemic attack) Vitamin D deficiency Surgical History Surgical History H/O neck surgery 01/2020 Family History Family History Father Family history of cardiovascular disease Father Heart failure Social History Social History Smoking packs per day: 1.5 Smoking cigarettes per day: 30.0 Years smoked: 30 Smoking pack-years: 45.00 Smoking status: Former smoker Tobacco type: cigarettes Alcohol intake: never Substance use: never Substance use type: does not use Do You Feel Safe in your Home?: Yes Lack of Transportation: No Lack of Food: Never True Current Housing: I Have Housing Concerned About Future Housing: No Difficulty Paying Gas/Electric Bills: No Difficulty Paying for Meds: No Currently Unemployed: No Education: High School Diploma/GED Difficulty w/ Childcare or Family Care: No Living arrangements: with family Gender identity (if verbalized by the patient): Male Sexual Orientation (if Verbalized by the Patient): Straight or Heterosexual Spiritual care concerns: No Exam Narrative: General appearance: Well-developed, well-nourished Skin: Normal color Head: Normocephalic, nontraumatic Eyes: Clear conjunctiva ENT: Oropharynx normal, ears normal, nose normal Neck: Supple, nontender Chest and respiratory: Airway patent, no respiratory distress, no accessory muscle use Heart: Regular rate/rhythm Abdomen: Soft, nontender, no organomegaly, quiet bowel sounds Vascular: Normal peripheral pulses, normal capillary refill. Musculoskeletal: Normal range of motion, nontender back Neurologic: Alert and oriented ?3, GOLF CART ATTENDANT is normal as tested, no gross motor deficit Course Consultations Consultation #1: Dr. Heard Admit to hospitalist Date: 05/31/23 Time: 19:06 Consultation #2: Dr. Mclaughlin No surgical consult required at this time. If the patient have any intra-abdominal tumor would be okay to be consulted. Date: 05/31/23 Time: 19:10 Vital Signs Vital signs: Vital Signs Temperature 36.1 C L 05/31/23 16:31 Pulse Rate 115 H 05/31/23 16:31 Respiratory Rate 20 05/31/23 16:31 Blood Pressure 142/88 H 05/31/23 16:31 Pulse Oximetry 100 05/31/23 16:31 Oxygen Delivery Room Air 05/31/23 16:31 Temperature 37.2 C
[2023-05-31 16:48] LABS: Appearance Urine Clear (Clear); Bilirubin Urine Negative (Negative); Blood Urine Negative (Negative); Color Urine Yellow (Yellow); Glucose Urine UA Negative (Negative); Ketones Urine 1+ mg/dL (Negative); Leukocyte Esterase Ur Negative LEU/UL (Negative); Nitrate Urine Negative (Negative); Protein Urine Negative (Negative); Specific Grav Ur 1.027 (1.001-1.035); Urobilinogen Urine 0.2 mg/dL (<2.0)
[2023-05-31 16:52] LABS: Add Urine Microscopic? NO
[2023-05-31 17:10] VITALS: BP 101/64; PULSE 64; RESP 16; O2SAT 100
[2023-05-31] MEDS: SODIUM CHLORIDE 0.9% IV 1,000 ML 999 ML IV CONT (17:19)
[2023-05-31 17:21] LABS: Basophils Percent Auto 0.4 % (0.2-1.2); Eosinophils Absolute Auto 0.1 K/mm3 (0-0.3); Eosinophils Percent Auto 1.1 % (0-4.4); Hematocrit 42.5 % (42.0-52.0); Hemoglobin 14.5 g/dL (14.0-18.0); Immature Granulocyte Absolute 0.04 K/mm3 (0.00-0.031); Immature Granulocyte Percent A 0.4 % (0-0.5); Lymphocytes Absolute Auto 1.63 K/mm3 (0.9-3.2); Lymphocytes Percent Auto 15.7 % (18.3-44.2); Mean Corpuscular HGB Conc 34.1 g/dl (32-36); Mean Corpuscular Hemoglobin 30.5 pg (26-34); Mean Corpuscular Volume 89.5 fl (80-100); Mean Platelet Volume 9.5 fl (7.4-10.4); Monocytes Absolute Auto 0.8 K/mm3 (0.1-0.6); Monocytes Percent Auto 7.3 % (2.6-8.5); Neutrophils Absolute Auto 7.8 K/mm3 (1.3-6.7); Neutrophils Percent Auto 75.1 % (45.5-73.1); Platelet Count Result 300 k/mm3 (150-375); Red Blood Count 4.75 M/mm3 (4.6-6.20); Red Cell Distribution Width 13.2 % (11.5-14.5); White Blood Count 10.4 K/mm3 (4.5-10.0)
[2023-05-31 17:28] LABS: Alanine Aminotransferase 24 U/L (6-50); Albumin Level 4.6 g/dL (3.5-5.1); Alkaline Phosphatase 107 U/L (38-126); Anion Gap 10 mmol/L (8-16); Aspartate Amino Transferase 37 U/L (17-59); Bilirubin,Total 0.7 mg/dL (0.2-1.3); Blood Urea Nitrogen 21 mg/dL (9-20); Calcium 10.3 mg/dL (8.4-10.2); Carbon Dioxide 23 mmol/L (22-30); Chloride 103 mmol/L (98-107); Estimated CRCL calculation 60 ml/min; Estimated Glomerular Filt Rate > 60; Glucose 105 mg/dL (65-110); Potassium 4.5 mmol/L (3.4-5.0); Sodium 136 mmol/L (137-145)
[2023-05-31] MEDS: HYDROmorphone HCL INJ (*CRX) 1 MG/ML SYR 0.5 MG IV PUSH (18:42)
[2023-05-31] MEDS: TAMSULOSIN HCL 0.4 MG CAPSULE PO (18:42)
[2023-05-31] MEDS: ONDANSETRON INJ 4 MG/2 ML VIAL IV PUSH (18:42)
[2023-05-31] MEDS: SODIUM CHLORIDE 0.9% IV 1,000 ML 150 ML IV CONT (20:44)
--- NOTE | 2023-05-31 20:44 | PM.IMHP ---
H&P: HPI History of Present Illness Date/Time: 05/31/23 20:44 Chief Complaint: back pain Narrative: This is a 67-year-old male with past medical history significant for hypertension, spinal stenosis, chronic back pain. Patient presents to the emergency room after having sudden onset of back pain, abdominal pain, constipation, nausea. Patient had been in his usual state of health up until this point denied any hematemesis, coffee-ground emesis, hematochezia, melena, no weight loss. preliminary workup was significant for CT of abdomen and pelvis shows fecal impaction at the level of the ileum. Patient had NG placed in emergency room and is been admitted for further evaluation management and treatment. EXAMINATION: CT abdomen pelvis wo con DATE: 05/31/2023 17:52 INDICATION: Bilateral flank pain. Kidney stones. TECHNIQUE: Computed tomography (CT) of the abdomen and pelvis was performed without intravenous contrast. Automated exposure control and iterative reconstruction technique were employed. The dose-length product was 261.33 mGy-cm. COMPARISON: CT abdomen and pelvis 06/07/2021 FINDINGS: The visualized portions of the lung bases demonstrate minimal atelectasis. No pleural effusion. The heart size is normal. No pericardial effusion. There are calcifications of right coronary artery. The liver, gallbladder, spleen, pancreas, and adrenal glands are normal. There is cortical thinning of right kidney. There are peripelvic cysts in left kidney measuring up to 2.2 cm . There is no urolithiasis. The prostate is mildly enlarged. There is diverticulosis of the colon without evidence of diverticulitis. There is desiccated stool in the terminal ileum, which is normal in caliber. There are multiple dilated loops of small bowel proximal to this area. The stomach is distended. There are no pathologically enlarged lymph nodes. There is no free intraperitoneal fluid. There is a chronic large right hydrocele. There is severe thoracic and lumbar spondylosis. IMPRESSION: 1. Stool impaction in the terminal ileum. 2. Chronic large right hydrocele. Review of Systems Review of Systems: Back pain, abdominal pain, nausea, constipation Constitutional: Constitutional: Denies chills, Denies fever(s), Denies night sweats and Reports poor appetite Eyes: Eyes: Denies change in vision ENT: Denies dysphagia and Denies odynophagia Cardiovascular: Cardiovascular: Denies chest pain Respiratory: Respiratory: Denies cough and Denies dyspnea Gastrointestinal: Gastrointestinal: Reports abdominal pain, Denies melena, Reports bloating, Denies hematochezia, Denies coffee ground emesis, Reports constipation, Denies diarrhea, Denies loose stools, Reports nausea and Denies vomiting Genitourinary: Genitourinary: Denies dysuria Musculoskeletal: Musculoskeletal: Reports back pain Integumentary/Breasts: Skin/Breast: Denies rash Neurologic: Denies focal weakness and Denies Sensory deficit (Neuro) Psychiatric: Psychiatric: Reports no additional psychiatric complaints and Reports as per HPI Endocrine: Endocrine: Denies cold intolerance, Denies flushing, Denies heat intolerance, Denies polyphagia, Denies polydipsia and Denies palpitations Hematologic/Lymphatic: Hematologic/Lymphatic: Reports no additional hematologic/lymphatic complaints and Reports as per HPI Allergic/Immunologic: Allergic/Immunologic: Reports no additional allergic/immunologic complaints and Reports as per HPI PMFSH Past Medical History Medical History Acid reflux Acute hyperkalemia Elevated glucose level Encounter for screening for other disorder GERD (gastroesophageal reflux disease) Hypertension Hypertension Impacted cerumen of left ear Insomnia Kidney stones Leg cramping Migraine headache Mild acid reflux Nausea and vomiting Screening for colon cancer Screening for prostate cancer TIA (transient ischemic attack) Vitamin D
[2023-05-31 20:45] VITALS: PULSE 85; RESP 15; TEMP 36.6; O2SAT 100
[2023-05-31 21:17] VITALS: BP 141/87; PULSE 89; RESP 15; O2SAT 98
[2023-05-31 21:30] VITALS: BP 143/88; PULSE 74; RESP 18; TEMP 37.2; O2SAT 100
[2023-05-31] MEDS: ASPIRIN 81 MG CHEWABLE TABLET 324 MG PO (22:22)
--- NOTE | 2023-05-31 22:25 | PC.NURSE ---
This patient, Jacob Linda, was admitted to [facility] Surg Room 304-02. Patient/family oriented to hospital policies and general routines including ID bracelet, bed and alarms, visiting hours, pain management, procedures, bathroom and other care routines, personal items, smoking policy, room service/diet, and visiting hours. Information on how to activate the Rapid Response Team has been discussed. Patient/Family are encouraged to report perceived risks to care and to ask questions if they do not understand what they are told or what they should do.
[2023-06-01] MEDS: SODIUM CHLORIDE 0.9% IV 1,000 ML 150 ML IV CONT ×3 (03:44→17:21)
[2023-06-01 06:14] VITALS: BP 131/79; PULSE 84; RESP 20; TEMP 36.7; O2SAT 98
--- NOTE | 2023-06-01 06:26 | WPDGICN ---
Assessment and Plan Assessment and plan (1) Back pain: Code(s): M54.9 - Dorsalgia, unspecified Status: Acute Assessment and Plan: he presented to the emergency room with back pain which was similar to his previous pain with kidney stones. He had some radiation to the right groin. (2) Fecal impaction: Code(s): K56.41 - Fecal impaction Status: Acute Assessment and Plan: CT scan of the abdomen shows: FINDINGS: The visualized portions of the lung bases demonstrate minimal atelectasis. No pleural effusion. The heart size is normal. No pericardial effusion. There are calcifications of right coronary artery. The liver, gallbladder, spleen, pancreas, and adrenal glands are normal. There is cortical thinning of right kidney. There are peripelvic cysts in left kidney measuring up to 2.2 cm . There is no urolithiasis. The prostate is mildly enlarged. There is diverticulosis of the colon without evidence of diverticulitis. There is desiccated stool in the terminal ileum, which is normal in caliber. There are multiple dilated loops of small bowel proximal to this area. The stomach is distended. There are no pathologically enlarged lymph nodes. There is no free intraperitoneal fluid. There is a chronic large right hydrocele. There is severe thoracic and lumbar spondylosis. (3) Kidney stones: Code(s): N20.0 - Calculus of kidney Status: Acute Assessment and Plan: no acute stone as the patient had suspected (4) Small bowel obstruction: Code(s): K56.609 - Unspecified intestinal obstruction, unspecified as to partial versus complete obstruction Status: Acute Assessment and Plan: NG tube was placed. There was about 700 mm obtained immediately. Nothing has come out during the night. On examination the patient is abdomen is soft and nontender. He has very good bowel cells. I will give him a laxative per NG tube and hopefully remove that this morning. Although he has what appears on CT scan to be obstruction the terminal ileum, surgery was not called. The emergency room physician told me that surgery always asks to get GI on board 1st. GI Consult Note Consult date/time: 06/01/23 06:26 HPI: Jacob Linda is a 67 year old male who yesterday had sudden onset of back pain and some radiating into the lower abdomen. He had some nausea but no vomiting. He has not had a fever. He has had kidney stones in the past and this is felt the same to him. A CT scan in the emergency room however showed what appears to be stool or other material in the terminal ileum. Was described as desiccated stool the patient denies having constipation he does not usually take anything for his bowel movements. He has had no weight loss. His appetite has been good and he really has not had abdominal pain. He felt uncomfortable and full and that subsided after NG tube was placed and about 700 mL of fluid was obtained. during the night only a scant bit of material is showing up in the NG tube canister. Review of Systems Review of Systems: All systems reviewed & are unremarkable except as noted in HPI and below PMFSH Past Medical History Medical History Acid reflux Acute hyperkalemia Elevated glucose level Encounter for screening for other disorder GERD (gastroesophageal reflux disease) Hypertension Hypertension Impacted cerumen of left ear Insomnia Kidney stones Leg cramping Migraine headache Mild acid reflux Nausea and vomiting Screening for colon cancer Screening for prostate cancer TIA (transient ischemic attack) Vitamin D deficiency Surgical History Surgical History H/O neck surgery 01/2020 Family History Family History Father Family history of cardiovascular disease Father Heart failure Social History Socia
[2023-06-01] MEDS: MAGNESIUM CITRATE 300 ML BTL 150 ML PO (06:33)
--- NOTE | 2023-06-01 06:33 | PC.NURSE ---
Md Heard ordered to clamp NG and given magnesium citrate PO
--- NOTE | 2023-06-01 06:36 | PC.NURSE ---
MD Heard informed Ed reported 700 ml out, minimal output on floor 50 ml
--- NOTE | 2023-06-01 07:41 | PM.IMPN ---
Progress Note: A&P Assessment and Plan (1) Small bowel obstruction: Code(s): K56.609 - Unspecified intestinal obstruction, unspecified as to partial versus complete obstruction Status: Acute (2) Fecal impaction: Code(s): K56.41 - Fecal impaction Status: Acute (3) Back pain: Code(s): M54.9 - Dorsalgia, unspecified Status: Acute (4) Abdominal pain: Code(s): R10.9 - Unspecified abdominal pain Status: Acute (5) Acute constipation: Code(s): K59.00 - Constipation, unspecified Status: Acute (6) Spinal stenosis: Qualifiers: Spinal region: cervical Qualified Code(s): M48.02 - Spinal stenosis, cervical region Code(s): M48.00 - Spinal stenosis, site unspecified Status: Acute (7) GERD (gastroesophageal reflux disease): Code(s): K21.9 - Gastro-esophageal reflux disease without esophagitis Status: Acute (8) Hypertension: Qualifiers: Hypertension type: essential hypertension Qualified Code(s): I10 - Essential (primary) hypertension Code(s): I10 - Essential (primary) hypertension Status: Chronic Plan ABD Pain/bowel obstruction/Fecal impaction CT shows fecal impaction of the Terminal ileum GI and Surgery consulted recommendations appreciated NG tube to intermittent suction Clamp tube administer laxative per GI (Mag Citrate) NO BM noted overnight NPO PPI IV Fluids Monitor and replenish electrolytes especially mag and K+ antiemetics pain control HTN Will resume Losartan once tolerating oral intake PRN Hydralazine if needed IV Systolic >160 BP per unit protocol HLD Will resume Statin when tolerating oral intake Code status: Full code per patient DVT prophylaxis: SCD's Stress ulcer prophylaxis: Protonix 40 daily PT/OT notes: ambulatory Disposition: Patient continues admission to the medical unit for further treatment of bowel obstruction GI and surgery to follow, attempt laxative and removal of NG tube. Patient will dischage to home when tolerating oral intake, BM and improvement to ABD pain. Time Spent With Patient Time with patient: 25 - 35 minutes Subjective Date/time seen: 06/01/23 07:41 Interval history: H&P (Medical Record) This is a 67-year-old male with past medical history significant for hypertension, spinal stenosis, chronic back pain.? Patient presents to the emergency room after having sudden onset of back pain, abdominal pain, constipation, nausea.? Patient had been in his usual state of health up until this point denied any hematemesis, coffee-ground emesis, hematochezia, melena, no weight loss. preliminary workup was significant for CT of abdomen and pelvis shows fecal impaction at the level of the ileum.? Patient had NG placed in emergency room and is been admitted for further evaluation management and treatment. 06/01: Patient reports some relief to ABD pain, scant amount of of NG tube at time of assessment currently clamped now and getting a laxative. Patient denies BM but did report some gas. ABD is still moderatly distended but soft no tenderness with palpation. GI following, Surgery consulted for further evaluation and recommendations. Will likely be able to pull NG tube if no N/V and BM will wait for surgery recommendations. Patient does have complaints of neck and back pain which is chronic but worst today pain medication ordered. Labs unremarkable and vitals stable. Review of Systems Review of Systems: All systems reviewed & are unremarkable except as noted in HPI and below Exam Narrative: Physical Exam: GENERAL: Alert and oriented x 3. No acute distress. Well-nourished. EYES: EOMI. No scleral icterus. PERRLA. HEENT: Moist mucous membranes. No cervical lymphadenopathy. LUNGS: Clear to auscultation bilaterally. No accessory muscle use. CARDIOVASCULAR: Regular rate and rhythm. No murmur. No JVD. S1-S2 ABDOMEN:
[2023-06-01 08:12] LABS: Hematocrit 37.8 % (42.0-52.0); Hemoglobin 12.5 g/dL (14.0-18.0); Mean Corpuscular HGB Conc 33.1 g/dl (32-36); Mean Corpuscular Hemoglobin 30.6 pg (26-34); Mean Corpuscular Volume 92.6 fl (80-100); Mean Platelet Volume 9.7 fl (7.4-10.4); Platelet Count Result 265 k/mm3 (150-375); Red Blood Count 4.08 M/mm3 (4.6-6.20); Red Cell Distribution Width 13.5 % (11.5-14.5); White Blood Count 6.9 K/mm3 (4.5-10.0)
[2023-06-01 08:18] LABS: Alanine Aminotransferase 18 U/L (6-50); Albumin Level 3.5 g/dL (3.5-5.1); Alkaline Phosphatase 85 U/L (38-126); Anion Gap 6 mmol/L (8-16); Aspartate Amino Transferase 30 U/L (17-59); Bilirubin,Total 0.6 mg/dL (0.2-1.3); Blood Urea Nitrogen 16 mg/dL (9-20); Calcium 8.6 mg/dL (8.4-10.2); Carbon Dioxide 20 mmol/L (22-30); Chloride 110 mmol/L (98-107); Estimated CRCL calculation 67 ml/min; Estimated Glomerular Filt Rate > 60; Glucose 95 mg/dL (65-110); Sodium 136 mmol/L (137-145)
[2023-06-01 08:22] LABS: Magnesium 2.1 mg/dL (1.6-2.3)
[2023-06-01] MEDS: HYDROmorphone HCL INJ (*CRX) 1 MG/ML SYR 0.5 MG IV PUSH ×2 (08:50→17:23)
[2023-06-01] MEDS: BISACODYL 10 MG SUPPOSITORY RECTAL (08:51)
--- NOTE | 2023-06-01 09:55 | PM.CNGS ---
Assessment and Plan Assessment and plan (1) Small bowel obstruction: Code(s): K56.609 - Unspecified intestinal obstruction, unspecified as to partial versus complete obstruction Status: Acute Assessment and Plan: CT showed stool impacted in the terminal ileum with proximal small bowel dilation, possibly causing a functional bowel obstruction. He had an NG tube placed for decompression, which was clamped by GI earlier this morning. He has clinically improved since decompression. Will go ahead and get a water-soluble small bowel series, which will help to move the stool impaction through, as well as evaluate the possible obstruction. If this moves through and there is no mechanical obstruction, then we can remove the NG tube and start advancing his diet. Will keep him NPO with IV fluids and analgesics as needed while awaiting SBS. (2) Fecal impaction: Code(s): K56.41 - Fecal impaction Status: Acute Assessment and Plan: See plan above. (3) Hypertension: Qualifiers: Hypertension type: essential hypertension Qualified Code(s): I10 - Essential (primary) hypertension Code(s): I10 - Essential (primary) hypertension Status: Chronic (4) GERD (gastroesophageal reflux disease): Code(s): K21.9 - Gastro-esophageal reflux disease without esophagitis Status: Acute Plan I have discussed the patient's case and plan of care with Dr. Mclaughlin. History of Present Illness Consult details Consult date: 06/01/23 Reason for consult: other (Bowel obstruction) Requesting physician: Opal Beckham, [facility] Narrative: This is a 67-year-old man who we have been asked to see in surgical consultation for a small-bowel obstruction. Patient reports a gradual onset of generalized abdominal pain starting 3 days ago. Initially, he thought this was related to heartburn. Over the next day or 2, he developed abdominal distension and bloating. He then began to notice some nausea, but had no vomiting. His abdominal pain progressively got worse over the next few days. Yesterday, he developed mid upper back pain. His back pain became so severe that he ended up presenting to the ER. Labs were essentially unremarkable. CT scan of the abdomen and pelvis showed stool impaction in the terminal ileum causing a proximal obstruction. The patient was admitted to the hospitalist service. He had an NG tube placed last night in the ER. Our service has been consulted by hospitalist. He is seen this morning. His last bowel movement was yesterday afternoon. He denies any recent constipation and reports moving his bowels daily leading up to this. No previous abdominal surgeries. He reports flatus this morning. His abdominal pain and bloating has improved. His back pain has also improved. He does have chronic cervical pain, which is currently aggravated by the fact that he had had a sleep elevated due to the NG tube. This is the pain he received IV Dilaudid for this morning. No history of bowel obstructions in the past. Review of Systems Review of Systems: All systems reviewed & are unremarkable except as noted in HPI and below [facility] Past Medical History Medical History (Updated 06/01/23 @ 10:03 by RHONDA Hernandez) Acid reflux Elevated glucose level GERD (gastroesophageal reflux disease) Hypertension Impacted cerumen of left ear Insomnia Kidney stones Leg cramping Migraine headache TIA (transient ischemic attack) Vitamin D deficiency Surgical History Surgical History H/O neck surgery 01/2020 Family History Family History Father Family history of cardiovascular disease Father Heart failure Social History Social History Smoking packs per day: 1.5 Smoking cigarettes per day: 30.0 Years smoked: 30 Smoking pack-y
[2023-06-01] MEDS: ONDANSETRON INJ 4 MG/2 ML VIAL IV PUSH (12:48)
[2023-06-01 14:00] VITALS: BP 143/81; PULSE 87; RESP 20; TEMP 36.6; O2SAT 96
[2023-06-01] MEDS: ACETAMINOPHEN 500 MG TABLET PO (18:50)
[2023-06-01 21:48] VITALS: BP 114/65; PULSE 89; RESP 18; TEMP 36.7; O2SAT 95
[2023-06-02] MEDS: HYDROmorphone HCL INJ (*CRX) 1 MG/ML SYR 0.5 MG IV PUSH (02:39)
[2023-06-02] MEDS: ACETAMINOPHEN 500 MG TABLET PO (02:39)
[2023-06-02] MEDS: SODIUM CHLORIDE 0.9% IV 1,000 ML 100 ML IV CONT (02:42)
[2023-06-02 06:00] VITALS: BP 122/67; PULSE 70; RESP 18; TEMP 36.7; O2SAT 98
[2023-06-02 06:22] LABS: Hematocrit 32.1 % (42.0-52.0); Hemoglobin 10.3 g/dL (14.0-18.0); Mean Corpuscular HGB Conc 32.1 g/dl (32-36); Mean Corpuscular Hemoglobin 30.2 pg (26-34); Mean Corpuscular Volume 94.1 fl (80-100); Mean Platelet Volume 9.8 fl (7.4-10.4); Platelet Count Result 205 k/mm3 (150-375); Red Blood Count 3.41 M/mm3 (4.6-6.20); Red Cell Distribution Width 13.6 % (11.5-14.5); White Blood Count 6.6 K/mm3 (4.5-10.0)
[2023-06-02 06:35] LABS: Alanine Aminotransferase 14 U/L (6-50); Albumin Level 2.9 g/dL (3.5-5.1); Alkaline Phosphatase 65 U/L (38-126); Anion Gap 4 mmol/L (8-16); Aspartate Amino Transferase 28 U/L (17-59); Bilirubin,Total 0.4 mg/dL (0.2-1.3); Blood Urea Nitrogen 11 mg/dL (9-20); Calcium 7.7 mg/dL (8.4-10.2); Carbon Dioxide 23 mmol/L (22-30); Chloride 109 mmol/L (98-107); Estimated CRCL calculation 76 ml/min; Estimated Glomerular Filt Rate > 60; Glucose 99 mg/dL (65-110); Potassium 3.6 mmol/L (3.4-5.0); Sodium 136 mmol/L (137-145)
[2023-06-02 07:50] VITALS: O2SAT 97
[2023-06-02 07:51] VITALS: O2SAT 97
--- NOTE | 2023-06-02 12:16 | PM.DS ---
DS: Admitting Diagnosis Discharge Date 06/02/2023 Admitting Diagnosis Fecal Impaction/possible SBO DS: Discharge Diagnosis Discharge Diagnosis (1) Small bowel obstruction: Code(s): K56.609 - Unspecified intestinal obstruction, unspecified as to partial versus complete obstruction Status: Acute (2) Fecal impaction: Code(s): K56.41 - Fecal impaction Status: Acute (3) Back pain: Code(s): M54.9 - Dorsalgia, unspecified Status: Acute (4) Abdominal pain: Code(s): R10.9 - Unspecified abdominal pain Status: Acute (5) Acute constipation: Code(s): K59.00 - Constipation, unspecified Status: Acute (6) Spinal stenosis: Qualifiers: Spinal region: cervical Qualified Code(s): M48.02 - Spinal stenosis, cervical region Code(s): M48.00 - Spinal stenosis, site unspecified Status: Acute (7) GERD (gastroesophageal reflux disease): Code(s): K21.9 - Gastro-esophageal reflux disease without esophagitis Status: Acute (8) Hypertension: Qualifiers: Hypertension type: essential hypertension Qualified Code(s): I10 - Essential (primary) hypertension Code(s): I10 - Essential (primary) hypertension Status: Chronic Plan ABD Pain/bowel obstruction/Fecal impaction CT shows fecal impaction of the Terminal ileum GI and Surgery consulted recommendations appreciated NG tube to intermittent suction Clamp tube administer laxative per GI (Mag Citrate) NO BM noted overnight NPO PPI IV Fluids Monitor and replenish electrolytes especially mag and K+ antiemetics pain control HTN Will resume Losartan once tolerating oral intake PRN Hydralazine if needed IV Systolic >160 BP per unit protocol HLD Will resume Statin when tolerating oral intake Disposition: Patient tolerating oral intake and having BM's with no further ABD pain. Patient is ambulatory on own and was discharged home will need to follow-up with PCP and GI. DS: Summary Hospital Course Reason for hospitalization: Fecal Impaction/possible SBO Hospital Course: H&P (Medical Record) This is a 67-year-old male with past medical history significant for hypertension, spinal stenosis, chronic back pain.? Patient presents to the emergency room after having sudden onset of back pain, abdominal pain, constipation, nausea.? Patient had been in his usual state of health up until this point denied any hematemesis, coffee-ground emesis, hematochezia, melena, no weight loss. preliminary workup was significant for CT of abdomen and pelvis shows fecal impaction at the level of the ileum.? Patient had NG placed in emergency room and is been admitted for further evaluation management and treatment. 06/01: Patient reports some relief to ABD pain, scant amount of of NG tube at time of assessment currently clamped now and getting a laxative.? Patient denies BM but did report some gas.? ABD is still moderatly distended but soft no tenderness with palpation.? GI following, Surgery consulted for further evaluation and recommendations.? Will likely be able to pull NG tube if no N/V and BM will wait for surgery recommendations.? Patient does have complaints of neck and back pain which is chronic but worst today pain medication ordered. Labs unremarkable and vitals stable. 06/02: Discharged Patient was tolerating oral intake and having BM, small bowel XRAY showed no obstruction. Patient ambulatory and was discharged to home. Time Spent with Patient Time attestation: Total time spent providing and/or coordinating discharge services: Time spent: Greater than 30 minutes Exam Narrative: Physical Exam: GENERAL: Alert and oriented x 3. No acute distress. Well-nourished. EYES: EOMI. No scleral icterus. PERRLA. HEENT: Moist mucous membranes. No cervical lymphadenopathy. LUNGS: Clear to auscultation bilaterally. No accessory muscle use. CARDIOVASCULAR
[2023-06-02 14:00] VITALS: BP 130/76; PULSE 101; RESP 18; TEMP 36.7; O2SAT 92
--- NOTE | 2023-06-02 15:37 | PCCCNOTE ---
On 06/02/23, the student, [Stephany Suarez], provided care and completed [facility] documentation on this patient. I have reviewed the student's documentation and agree with the findings.
== END 2023-06-02 13:50 | disposition home or self-care (01) ==
LOC: ANHED 19:16 → ANH3MEDSUR 06-01 10:17
PROVIDERS: Nurse Practitioner Family; Admitting Provider Internal Medicine; Emergency Provider Emergency Medicine; PCP Internal Medicine; Visit Provider Internal Medicine
DX: K56.609 Unspecified intestinal obstruction, unspecified as to partial versus complete obstruction (principal); K56.41 Fecal impaction; G89.29 Other chronic pain; M54.9 Dorsalgia, unspecified; M48.02 Spinal stenosis, cervical region; N43.3 Hydrocele, unspecified; Z93.1 Gastrostomy status; R35.0 Frequency of micturition; K21.9 Gastro-esophageal reflux disease without esophagitis; K44.9 Diaphragmatic hernia without obstruction or gangrene; N20.0 Calculus of kidney; I10 Essential (primary) hypertension; Z79.899 Other long term (current) drug therapy; R63.0 Anorexia; Z68.23 Body mass index [BMI] 23.0-23.9, adult; Z86.73 Personal history of transient ischemic attack (TIA), and cerebral infarction without residual deficits; Z87.891 Personal history of nicotine dependence
CPT/HCPCS: 36415; 74176; 74250; 80053; 81003; 83735; 85025; 85027; 96361; 96374; 96375; 96376; 99285; A9270; G0378; J1170; J2405; J7030

== ENCOUNTER 2024-07-31 09:41 | Outpatient (CLI) | payer MEDICARE, SELFPAY ==
--- OUTSIDE RECORDS SUMMARY | 2024-07-31 10:50 | XMS_ITS | Clinical Summary ---
Author Organization [facility] C Address [address] [place] [address] Care Team Providers Care Log Chain Feeder Name Role Phone Jacob Sumner DO Primary Care Provider [phone] Allergies No known active allergies Medications simvastatin (ZOCOR) 10 mg tablet Take 1 tablet (10 mg total) by mouth nightly Active losartan (COZAAR) 100 mg tablet Take 1 tablet (100 mg total) by mouth daily Active cetirizine (ZyrTEC) 10 mg tablet Take 1 tablet (10 mg total) by mouth daily as needed Active famotidine (PEPCID) 20 mg tablet Take 1 tablet (20 mg total) by mouth daily as needed Active acetaminophen (TYLENOL) 500 mg tablet Take 1 tablet (500 mg total) by mouth every 6 (six) hours as needed for pain Active multivitamin capsule Take 1 capsule by mouth daily Active tiZANidine (ZANAFLEX) 4 mg tabletIndicatio ns:Muscle Spasm Take 1 tablet (4 mg total) by mouth every 6 (six) hours as needed for muscle spasms 90 tablet 2 3 Active acetaminophen-a spirin-caffeine (EXCEDRIN MIGRAINE) 250-250-65 mg per tablet Take 1 tablet by mouth as needed for headaches 30 tablet 3 Active Active Problems Problem Noted Date Diagnosed Date Hypertension 09/21/2022 Hyperlipidemia 09/21/2022 GERD (gastroesophageal reflux disease) 3 Cervical disc disorder with radiculopathy of mid-cervical region 09/01/2022 Assessment & Plan (09/01/2022 11:13 AM CDT): Mr. Linda has persistent radiculopathy despite conservative treatment including injections. He reports that it is slowly getting worse over time and now more prominent on the left side. He has severe bilateral foraminal stenosis at C5-6 and C6-7. I have offered him surgery in the form C5-6 and C6-7 ACDF with removal of prior hardware C3-C5. There is no movement at these levels on dynamic range of motion films from April of 2022. We will perform this at our earliest convenience. S/P cervical spinal fusion 03/16/2020 Assessment & Plan (03/14/2023 12:57 PM PSYCHIATRIC ASSISTANT): Mr. Linda is clinically improved after C5-C7 ACDF. X-rays were performed today after clinic and shows incomplete arthrodesis at C5-6 and C6-7 which is asymptomatic. I would not recommend any intervention unless this became symptomatic in the future. It is likely to go on to fusion over time. We will not set up a scheduled appointment, but I would be happy to see him back at any point on as-needed basis. If his right arm symptoms get worse, he may benefit from either orthopedic evaluation or EMG/nerve conduction study of his right upper extremity. Assessment & Plan (11/02/2022 1:40 PM CDT): Mr. Linda is clinically doing well after C5-C7 ACDF and revision of prior hardware. He is some mild swallowing problems which are improving. The severe right arm pain is gone after surgery. He has some numbness in that same distribution which we discussed may take a long time to resolve or may persist. I plan to see him back in 4.5 months with flexion-extension cervical spine films at that time. We will allow him to return to work with no restriction on 12/19/2022. Assessment & Plan (04/27/2022 10:52 AM PSYCHIATRIC ASSISTANT): Mr. Linda is clinically improved after C3-C5 ACDF. He has had recurrence of shoulder blade hand and right arm pain consistent with radiculopathy at lower levels. He is solidly fused from C3-C5 by x-ray. He has significant spondylosis at C5-6 and C6-7. We will get an MRI of the cervical spine to evaluate compression and he will follow-up with Dr. Maggi Tellez for possible injections at these levels. I plan to see him back in 4 months for re-evaluation. Assessment & Plan (04/28/2021 10:09 AM PSYCHIATRIC ASSISTANT): Mr. Linda reports that his symptoms are unchanged compared to October of 2020. Has known foraminal stenosis at C5-6 and C6-7. He has solid fusion by dynamic films today C3-C5. He reports intermittent neck pain and right arm. He reports that his symptoms at this point do not warrant surgical intervention. I plan to see him back in 1 year's time with no new films at that time. Assessment & Plan (10/28/2020 11:44 AM CDT): Mr. Linda is doing better after C3-5 ACDF for cervical myeloradiculopathy. He has known foraminal stenosis at C5-6 and C6-7 which will likely need to be addressed at some point in the future. Does report some increasing symptoms of posterior neck pain and is base and intrascapular pain associated with intermittent arm pain down to his fingers. We discussed that ideally he would solidly fused C3-C5 before readdress the lower levels so that we can remove the plate from C3-C5 and install a smaller plate from C5-C7. I plan to see him back in 6 months with flexion-extension films to assess the fusion. If he has increasing problems in the interim, he will contact our office for earlier evaluation. He will increase his potassium intake to help with some muscle spasms that he is having and I have encouraged him to get a neck massager to help relax his muscles at night. Assessment & Plan (04/29/2020 1:33 PM PSYCHIATRIC ASSISTANT): Mr. Linda is doing well after C3-4 and C4-5 ACDF with resolution of his neck and arm symptoms. He does get some interscapular pain at times. He still has significant spondylosis at C5-6 and C6-7 which is currently asymptomatic. We will allow him to return to work at full duty on Monday. I plan to see him back in 6 months with flexion-extension cervical spine films at that time. Assessment & Plan (03/17/2020 11:30 AM PSYCHIATRIC ASSISTANT): PLAN: - Start home exercise program, offered formal therapy but patient states he can do his own. - After 6 weeks, patient may resume NSAIDs WORK STATUS: - OFF WORK until re-evaluated. (Does repetitive BLTs and heavy lifting.) - No lifting greater than 15-20 lbs at this time. No repetitive bending, twisting, stooping, overhead lifting or reaching. FOLLOW UP APPT: With Dr. Ortiz in 6 weeks on April 29, 2020 with Flexion/Extension Cervical spine films. Resolved Problems Problem Noted Date Diagnosed Date Resolved Date Spinal stenosis in cervical region 01/07/2020 04/29/2020 Overview (01/07/2020): Added automatically from request for surgery [id number] Cervical stenosis of spine 10/31/2019 0 04/29/2020 Assessment & Plan (10/31/2019 2:21 PM CDT): Mr. Linda has a complex problem with anterior listhesis of C3 on C4 and multilevel degenerative changes from C3-4 to C6-7. His primary complaint of neck and proximal arm pain is likely due to the upper compression at C3-4 and C4-5 with the anterior listhesis and movement at C3-4. He does have foraminal stenosis at C6-7. We discussed that a four level surgery has significant morbidity the with swallowing difficulties and neck and intrascapular pain. As such I would recommend proceeding with C3-4 and C4-5 ACDF, knowing that we will likely ultimately need to do C5-6 and C6-7 ACDF in the future.We discussed discussed risks, alternatives and benefits to surgery with risks including, but not limited to, bleeding, infection, coma, , heart attack, stroke, paralysis, loss of vision, CSF leak, spinal instability requiring future operations, failure to relieve symptoms, bowel bladder, dysfunction and sexual dysfunction. We discussed increased risks of anterior cervical surgery including difficulty swallowing and damaged damage to the recurrent laryngeal nerve causing vocal cord paralysis and hoarseness of voice. They will discuss this and let us know how they wish to proceed. Surgical History Surgery Date Site/Laterality Comments EXTRACORPOREAL SHOCK WAVE LITHOTRIPSY COLONOSCOPY ANTERIOR FUSION CERVICAL SPINE 02/03/2020 S/P C3-5 ACDF (Angel) ANTERIOR FUSION CERVICAL SPINE 09/22/2022 C3-5 Hardware Removal; C5-7 ACDF (Angel) Medical History Medical History Date Comments Hypertension Spinal stenosis in cervical region History of nephrolithiasis Dyslipidemia Migraines GERD (gastroesophageal reflux disease) Kidney stone Hyperlipidemia 09/21/2022 Family History Medical History Relation Name Comments Hypertension Father Relation Name Status Comments Father Social History Tobacco Use Types Packs/Day Years Used Date Smoking Tobacco: Former Cigarettes 1.5 30 1 973 - 2002 Smokeless Tobacco: Never Tobacco Cessation:Counseling Given: Not Answered Alcohol Use Standard Drinks/Week Comments Not Currently 0 (1 standard drink = 0.6 oz pur e alcohol) AUDIT-C Answer Date Recorded Q1: How often do you have a drink containing alcohol? Never 09/21/2022 Q2: How many drinks containi ng alcohol do you have on a typical day when you are drinking? Patient does not drink Q3: How often do you have si x or more drinks on one occasion? Never 09/21/2022 PHQ-2 Answer Date Recorded PHQ-2 Total Score (If total score is 3 or more points, staff should administer the PHQ-9) 1 10/31/2019 Personal Safety Answer Date Recorded Have you ever been in or are you currently in a harmful physical or emotional relationship or is someone making you feel afraid or unsafe? Denies 09/22/2022 Sex and Gender Information Value Date Recorded Sex Assigned at Not on file Legal Sex Male 3:24 PM CDT Gender Identity Male 04/23/2020 3:13 AM PSYCHIATRIC ASSISTANT Sexual Orientation Straight 04/23/2020 3: 13 AM PSYCHIATRIC ASSISTANT Obstetrics History Last Filed Vital Signs Vital Sign Reading Time Taken Comments Blood Pressure 123/75 11/02/2022 1:15 PM CDT Pulse 66 11/02/2022 1:15 PM CDT Temperature 36.2 C (97.1 F) 09/22/2022 9:54 AM CDT Respiratory Rate 14 11/02/2022 1:15 PM CDT Oxygen Saturation 100% 09/22/2022 10:55 AM CDT Inhaled Oxygen Concentration - - Weight 63.1 kg (139 lb 1.8 oz) 09/22/2022 6:12 A M CDT Height 167.6 cm (5' 6 ) 09/22/2022 6:12 AM CDT Body Mass Index 22.45 09/22/2022 6:12 AM CDT Plan of Treatment Health Maintenance Due Date Last Done Comments Colon Cancer Screening-Colonoscopy 1954 Hepatitis C Screening 1954 Prostate Cancer Screening-PSA 1954 DTaP/Tdap/Td Vaccine (1 - Tdap) 1965 Hepatitis B Screening 1972 Pneumococcal vaccine 65+ (1 of 1 - PCV) 2004 Zoster Vaccine (1 of 2) 2004 Abdominal Aortic Aneurysm (AAA) Screen 12/31/2019 Well Visit 65+ 12/31/2019 Depression Screening 10/30/2020 10/31/2019, 10/31/19 20 Fall Risk Assessment 09/23/2023 09/22/2022, 01/20/20 20 Influenza Vaccine (#1) 2023 03/19/2014 Medical Devices Implanted Type Area Marine Diver Device Identifier Shelf Expiration Date Model / Serial / Lot [employer] 700-025 I Factor Allograft Putty Syringe Graft 2.5cc Bone - [id number] Implanted:Qty: 1 on 02/03/2020 by Juan José Ortiz MD at [facility] N/A: Spine Cervical [employer] 11/07/2022 700-025 / / [id number] [facility] 3d Cervical 14.8n19f7ij 7 Deg - [id number] Implanted:Qty: 1 on 02/03/2020 by Juan José Ortiz MD at [facility] N/A: Spine Cervical Core Link 10/31/2024 [id number] 708 / / [id number] [employer] 3d Cervical 14.9f20d1vh 7 Deg - [id number] Implanted:Qty: 1 on 02/03/2020 by Juan José Ortiz MD at [facility] N/A: Spine Cervical Core Link 10/31/2024 [id number] 708 / / [id number] Core Link Anodyne 4mm 14mm Variable Angle Self Tap Spine Cervical Screw - [id number] Implanted:Qty: 6 on 02/03/2020 by Juan José Ortiz MD at [facility] N/A: Spine Cervical Core Link / / Core Link Anodyne 30mm Level 2 Spine Cervical Anterior Plate Bone - [id number] Implanted:Qty: 1 on 02/03/2020 by Juan José Ortiz MD at [facility] N/A: Spine Cervical Core Link / / Core Link Anodyne 4mm 14mm Variable Angle Self Tap Spine Cervical Screw - [id number] Implanted:Qty: 6 on 09/22/2022 by Juan José Ortiz MD at [facility] Core Link / / [employer] Allograft Bone Putty 2.5cc 700-025 - [id number] Implanted:Qty: 1 on 09/22/2022 by Juan José Ortiz MD at [facility] N/A: Spine Cervical [employer] [id number] 12/08/2024 700-025 / / [id number] Core Link Cage Spinal Cervical 7 Degree Acif Foundation 14.0n30u7dm Titanium [id number] - [id number] Implanted:Qty: 1 on 09/22/2022 by Juan José Ortiz MD at [facility] N/A: Spine Cervical Core Link [id number] 02/01/2027 [id number] 708 / / [id number] Core Link Cage Spinal Cervical 7 Degree [employer] Foundation 14.3i85j6yd Titanium [id number] - [id number] Implanted:Qty: 1 on 09/22/2022 by Juan José Ortiz MD at [facility] Core Link [id number] 05/03/2026 3CF1 412-0 707 / / [id number] Core Link Anodyne 30mm Level 2 Spine Cervical Anterior Plate Bone - [id number] Implanted:Qty: 1 on 09/22/2022 by Juan José Ortiz MD at [facility] Core Link [id number] / / Insurance CIGNA CIGNA CIGNA Care Teams Log Chain Feeder Relationship Specialty Start Date End Date Jacob Sumner DO PCP - General Internal Medicine 10/31/19
--- OUTSIDE RECORDS SUMMARY | 2024-07-31 10:50 | XMS_ITS | Referral Summary ---
Author Organization [facility] Address [address] [place] [address] Care Team Providers Care Medical Assisting Instructor Name Role Phone Jacob Sumner DO Primary Care Provider +1- [phone] Allergies No known active allergies Medications simvastatin [...] 03/16/2020 Assessment & Plan (03/14/2023 12:57 PM ECONOMIC ANALYST): Mr. Linda is clinically improved after C5-C7 [...] 12/19/2022. Assessment & Plan (04/27/2022 10:52 AM ECONOMIC ANALYST): Mr. Linda is clinically improved after C3-C5 [...] re-evaluation. Assessment & Plan (04/28/2021 10:09 AM ECONOMIC ANALYST): Mr. Linda reports that his symptoms are [...] night. Assessment & Plan (04/29/2020 1:33 PM ECONOMIC ANALYST): Mr. Linda is doing well after C3-4 [...] time. Assessment & Plan (03/17/2020 11:30 AM ECONOMIC ANALYST): PLAN: - Start home exercise program, offered [...] (01/07/2020): Added automatically from request for surgery [id number] Cervical stenosis of spine 10/31/2019 0 04/29/2020 [...] us know how they wish to proceed. Social History Tobacco Use Types Packs/Day Years [...] CDT Gender Identity Male 04/23/2020 3:13 AM ECONOMIC ANALYST Sexual Orientation Straight 04/23/2020 3: 13 AM ECONOMIC ANALYST Last Filed Vital Signs Vital Sign Reading [...] 09/22/2022 6:12 AM CDT Plan of Treatment Not on file Medical Devices Implanted Type Area Acid Changer Device Identifier Shelf Expiration Date Model / Serial / Lot [employer] 700-025 I Factor Allograft Putty Syringe Graft 2.5cc Bone - [id number] Implanted:Qty: 1 on 02/03/2020 by Juan José Ortiz MD at [facility] N/A: Spine Cervical [employer] 11/07/2022 700-025 / / [id number] [employer] 3d Cervical 14.6a61g1tt 7 Deg - [id number] Implanted:Qty: 1 on 02/03/2020 by Juan José Ortiz MD at [facility] N/A: Spine Cervical Core Link 10/31/2024 [id number] 708 / / [id number] [employer] 3d Cervical 14.1z68u4jd 7 Deg - [id number] Implanted:Qty: 1 on 02/03/2020 by Juan José Ortiz MD at [facility] N/A: Spine Cervical Core Link 10/31/2024 [id number] 708 / / [id number] Core Link Anodyne 4mm 14mm Variable Angle Self Tap Spine Cervical Screw - [id number] Implanted:Qty: 6 on 02/03/2020 by Juan José Ortiz MD at [facility] N/A: Spine Cervical Core Link / / Core Link Anodyne 30mm Level 2 Spine Cervical Anterior Plate Bone - [id number] Implanted:Qty: 1 on 02/03/2020 by Juan José Ortiz MD at [facility] N/A: Spine Cervical Core Link / / Core Link Anodyne 4mm 14mm Variable Angle Self Tap Spine Cervical Screw - [id number] Implanted:Qty: 6 on 09/22/2022 by Juan José Ortiz MD at [facility] Core Link / / [employer] Allograft Bone Putty 2.5cc 025 - [id number] Implanted:Qty: 1 on 09/22/2022 by Juan José Ortiz MD at [facility] N/A: Spine Cervical [employer] [id number] 12/08/2024 700-025 / / [id number] Core Link Cage Spinal Cervical 7 Degree Acif Foundation 14.3h24h5nq Titanium 4sm7919-7478 - [id number] Implanted:Qty: 1 on 09/22/2022 by Juan José Ortiz MD at [facility] N/A: Spine Cervical Core Link [id number] 02/01/2027 2LX0079-1 708 / / [id number] Core Link Cage Spinal Cervical 7 Degree Acif Foundation 14.0l41o2jm Titanium 2ew7440-8468 - [id number] Implanted:Qty: 1 on 09/22/2022 by Juan José Ortiz MD at [facility] Core Link [id number] 05/03/2026 3CF1 412-0 707 / / [id number] Core Link Anodyne 30mm Level 2 Spine Cervical Anterior Plate Bone [id number] Implanted:Qty: 1 on 09/22/2022 by Juan José Ortiz MD at [facility] Core Link / / Insurance CIGNA CIGNA CIGNA Care Teams Medical Assisting Instructor Relationship Specialty Start Date End Date Jacob Sumner DO PCP - General Internal Medicine 10/31/19
[2024-07-31 19:59] LABS: Basophils Absolute Auto 0.1 K/mm3 (0.0-0.1); Basophils Percent Auto 0.9 % (0.2-1.2); Eosinophils Absolute Auto 0.2 K/mm3 (0-0.3); Eosinophils Percent Auto 2.7 % (0-4.4); Hematocrit 41.8 % (42.0-52.0); Hemoglobin 13.6 g/dL (14.0-18.0); Immature Granulocyte Absolute 0.02 K/mm3 (0.00-0.031); Immature Granulocyte Percent A 0.3 % (0-0.5); Lymphocytes Percent Auto 27.3 % (18.3-44.2); Mean Corpuscular HGB Conc 32.5 g/dl (32-36); Mean Corpuscular Hemoglobin 30.3 pg (26-34); Mean Corpuscular Volume 93.1 fl (80-100); Mean Platelet Volume 9.7 fl (7.4-10.4); Monocytes Absolute Auto 0.6 K/mm3 (0.1-0.6); Monocytes Percent Auto 10.7 % (2.6-8.5); Neutrophils Absolute Auto 3.4 K/mm3 (1.3-6.7); Neutrophils Percent Auto 58.1 % (45.5-73.1); Platelet Count Result 341 k/mm3 (150-375); Red Blood Count 4.49 M/mm3 (4.6-6.20); Red Cell Distribution Width 14.6 % (11.5-14.5); White Blood Count 5.9 K/mm3 (4.5-10.0)
[2024-07-31 20:45] LABS: Alanine Aminotransferase 26 U/L (6-50); Albumin Level 4.3 g/dL (3.5-5.1); Alkaline Phosphatase 105 U/L (38-126); Anion Gap 9 mmol/L (4-12); Aspartate Amino Transferase 67 U/L (17-59); Bilirubin,Total 0.3 mg/dL (0.2-1.3); Blood Urea Nitrogen 20 mg/dL (9-20); Calcium 9.2 mg/dL (8.4-10.2); Carbon Dioxide 23 mmol/L (22-30); Chloride 103 mmol/L (98-107); Cholesterol 179 mg/dL (0-200); Estimated Glomerular Filt Rate > 60; Glucose 99 mg/dL (65-110); HDL Direct 65 mg/dL; Potassium 5.3 mmol/L (3.4-5.0); Sodium 135 mmol/L (137-145); Triglycerides 51 mg/dL (<150)
[2024-07-31 20:57] LABS: LDL Cholesterol Direct 78 mg/dL
== END 2024-07-31 09:42 | disposition home or self-care (01) ==
LOC: ANHGOSHLAB 09:42
PROVIDERS: PCP Internal Medicine; Visit Provider Clinical Nurse Specialist
DX: E78.5 Hyperlipidemia, unspecified (principal); Z13.220 Encounter for screening for lipoid disorders; I10 Essential (primary) hypertension; Z12.5 Encounter for screening for malignant neoplasm of prostate
CPT/HCPCS: 36415; 80053; 80061; 84153; 85025; G0103